=== PATIENT | male | born 1975 | race Caucasian/White ===

== ENCOUNTER 2018-08-19 18:18 | Observation (INO) | payer BC ==
[~2018-08-19] VITALS: Ht 167.6 cm; Wt 72.1 kg
[2018-08-19 18:39] VITALS: BP 113/67
--- NOTE | 2018-08-19 18:45 | NUR ---
The patient, MARINA EUCEDA, 43 y/o, M admitted by RIVERA SCHWAB MD, was given written information regarding hospital policies, unit procedures and contact persons. Valuables were checked and left in room. Patient direct admission from Dr. Schwab, states that he was at [facility] today for ultrasound and then was told that he had a DVT and needed to be admitted. Patient arrived to hospital and ambulated to ICU 4 via wheelchair with friend. Patient alert and oriented x4, able to make needs known and denies complaints. States that pain to right leg is intermittent but currently is not having any pain at this time. Labs, vitals and IV placed at this time. Dr Schwab notified of arrival to unit and orders placed, plan is to start heparin gtt per protocol. Will continue to monitor.
[2018-08-19 19:14] LABS: BASO % 0 % (0-3); EOS # 0.2 x10^3/uL (0.0-0.7); EOS % 2 % (0-3); HEMATOCRIT 41.3 % (39.0-53.0); HEMOGLOBIN 13.7 g/dL (13.0-17.5); LYMPH % 20 % (24-48); MEAN CORPUSCULAR HEMOGLOBIN 31 pg (25-35); MEAN CORPUSCULAR HGB CONC 33 g/dL (31-37); MEAN CORPUSCULAR VOLUME 93 fL (79-100); MONO # 1.3 x10^3/uL (0.0-1.1); MONO % 13 % (0-9); NEUT # 6.8 x10^3uL (1.8-7.7); NEUT % 66 % (31-73); PLATELET COUNT 219 x10^3/uL (140-400); RED BLOOD COUNT 4.44 x10^6/uL (4.30-5.70); WHITE BLOOD COUNT 10.3 x10^3/uL (4.0-11.0)
[2018-08-19 19:41] LABS: ALBUMIN/GLOBULIN RATIO 0.8 (1.0-1.7); CREATININE 1.1 mg/dL (0.7-1.3); GFR 72.7; POTASSIUM 4.1 mmol/L (3.5-5.1); TOTAL BILIRUBIN 0.7 mg/dL (0.2-1.0); TOTAL PROTEIN 6.7 g/dL (6.4-8.2)
[2018-08-19] MEDS ORDERED: HEPARIN 25,000UTS/500ML PREMIX 500 ML IV PRN (19:45)
[2018-08-19] MEDS ORDERED: HEPARIN for IV BOLUS 10,000 UNIT/10 ML VIAL. IV PRN ×2 (19:45)
[2018-08-19] MEDS ORDERED: IOHEXOL 350 MG/ML 100 ML VIAL. IV ONE (20:00)
[2018-08-19] MEDS ORDERED: HEPARIN for IV BOLUS 10,000 UNIT/10 ML VIAL. IV ONE (20:00)
[2018-08-19 20:02] VITALS: BP 111/70
--- NOTE | 2018-08-19 20:09 | NUR ---
Labs resulted, radiology notified and taking patient for CTA. Heparin gtt to be started once back from radiology.
[2018-08-19 21:01] VITALS: BP 122/79
--- NOTE | 2018-08-19 21:11 | RAD ---
CT arteriogram of the chest. HISTORY: DVT right leg, evaluate for PE CT arteriogram was done using 90 mL Omnipaque 350 contrast. Thyroid is homogeneous. There is no mediastinal adenopathy or pleural effusion. There is a prominent pulmonary embolus in the right lung in the right lower lobe pulmonary artery. There is a probable small embolus in a subsegmental anterior branch of the left upper lobe. Lungs are free of infiltrates. There is mild basilar atelectasis. Visualized portions of liver and spleen are unremarkable. Adrenal glands are normal. Sagittal and coronal MIP images were reconstructed. IMPRESSION: 1. Pulmonary embolus right lower lobe, and a small subsegmental branch in the left upper lobe... 2. No acute infiltrates. The report was called the nursing digital account supervisor at 9:08 PM PQRS Compliance Statement: One or more of the following individualized dose reduction techniques were utilized for this examination: 1. Automated exposure control 2. Adjustment of the mA and/or kV according to patient size 3. Use of iterative reconstruction technique FOR INTERNAL CODING PURPOSES Critical result: RESULT CODE: (C) Electronically signed by: Chance Wilson MD (08/19/2018 9:08 PM) [facility]
[2018-08-19 22:03] VITALS: BP 116/67
--- NOTE | 2018-08-19 22:30 | NUR ---
during hourly rounds, pt is trying to fall asleep. Pt denies any complaints at this time.
[2018-08-19 23:00] VITALS: BP 106/65
[2018-08-20] VITALS (13 sets, daily range): BP systolic 104–129; BP diastolic 60–74
--- NOTE | 2018-08-20 01:00 | NUR ---
Pt states that he has not been able to sleep even a little bit, due to not being able to lay on his stomach. This nurse explained to pt that we can make him comfortable laying on his side. Pt was reluctant to try laying on his side, stating due to the monitor leads and IV sites. This nurse attempted several different options to help make him comfortable. He interrupted me and wanted to know what time the Dr comes in this morning and then get talking. Will continue to monitor pt and continue to attempt to make pt comfortable.
--- NOTE | 2018-08-20 02:37 | NUR ---
Thais from lab here to draw ptt per heparin protocol.
--- NOTE | 2018-08-20 03:00 | NUR ---
Pt is bothered by IV in left AC, and being unable to sleep. IV dc'd without complications.
[2018-08-20 03:04] LABS: BASO # 0.1 x10^3/uL (0.0-0.2); BASO % 1 % (0-3); EOS # 0.2 x10^3/uL (0.0-0.7); EOS % 2 % (0-3); HEMATOCRIT 41.9 % (39.0-53.0); HEMOGLOBIN 13.9 g/dL (13.0-17.5); LYMPH # 2.1 x10^3/uL (1.0-4.8); LYMPH % 25 % (24-48); MEAN CORPUSCULAR HEMOGLOBIN 31 pg (25-35); MEAN CORPUSCULAR HGB CONC 33 g/dL (31-37); MEAN CORPUSCULAR VOLUME 93 fL (79-100); MONO # 1.1 x10^3/uL (0.0-1.1); MONO % 13 % (0-9); NEUT # 4.9 x10^3uL (1.8-7.7); NEUT % 59 % (31-73); PLATELET COUNT 225 x10^3/uL (140-400); RED BLOOD COUNT 4.48 x10^6/uL (4.30-5.70); WHITE BLOOD COUNT 8.3 x10^3/uL (4.0-11.0)
[2018-08-20 03:39] LABS: ALBUMIN 2.8 g/dL (3.4-5.0); ALBUMIN/GLOBULIN RATIO 0.7 (1.0-1.7); CALCIUM 8.9 mg/dL (8.5-10.1); GFR 81.2; TOTAL BILIRUBIN 0.5 mg/dL (0.2-1.0); TOTAL PROTEIN 6.7 g/dL (6.4-8.2)
[2018-08-20 07:14] LABS: BACTERIA,URINE 0 /HPF (0-FEW); BILIRUBIN,URINE NEG (NEG); CLARITY,URINE HAZY; COLOR,URINE AMBER; GLUCOSE,URINE NEG (NEG); NITRITE,URINE NEG (NEG); SQUAMOUS EPITHELIAL CELL,UR FEW /LPF; UROBILINOGEN,URINE 2 mg/dL (0.2 mg/dL); WBC,URINE RARE /HPF (0-4)
--- NOTE | 2018-08-20 09:30 | NUR ---
Rounding with Dr. Smith Rounded with Dr. Smith at approx 0905. Dr. 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 Pt not aware of any family history of DVTs or PEs. Dr. Smith stated pt would be transitioned from heparin drip and DC on an oral anticoagulant today, and that pt should wear a thigh-high antiembolic stocking for the next six months. [address]. Smith notified that pt planning a trip to [place] at the end of this month, and Dr. Smith stated pt ok to fly provided he walk the aisles during the flight and not remain stationary. WCTM. Tavo Charles RN
[2018-08-20] MEDS ORDERED: APIX5TAB3 PO (09:54)
[2018-08-20] MEDS ORDERED: APIXABAN 5 MG TABLET. PO SCH ×2 (10:00→21:00)
--- NOTE | 2018-08-20 10:04 | NUR ---
Medium thigh-high antiembolic stocking applied to pt's R leg per Dr. Smith's order. D Melvin, RN
--- NOTE | 2018-08-20 10:31 | DS ---
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 The patient's scan showed a clot in his right lower lobe and left upper lobe. Prior to his lung blood clots, he was admitted because of the severity of the swelling to his legs as well as his pulmonary emboli. He was started on IV heparin. He did well during the night. No complications. The patient's labs are basically stable, slight elevation in monocytes, otherwise coag was D-dimer of 4. The patient will be discharged home on Eliquis 10 mg b.i.d. then 5 b.i.d. JULY hose to the high thigh. The patient discussed at length PEs and DVTs. IMPRESSION: Pulmonary emboli, new onset deep venous thrombosis of the right leg. PLAN: A few days off from work. Warned about walk, sitting and standing for long periods of time. See MRAD. Decreased activity. Regular diet. RIVERA SCHWAB MD DR: ANTONY/scott JOB#: [id number] / [id number]
--- NOTE | 2018-08-20 11:25 | NUR ---
Discharge Eliquis prescriptions called into [facility].
--- NOTE | 2018-08-20 13:17 | NUR ---
Pt left with friend Nerissa in her POV at 1315 via WC. Pt had all of his belongings with him at time of departure. Pt's 20g L hand PIV removed p/t departure. Pt provided education on apixaban during d/c review. Tavo Charles RN
== END 2018-08-20 13:15 | disposition home or self-care (01) ==
LOC: INTOOBSV 18:18 → ICU 18:18
PROVIDERS: ADMIT Family Medicine; ATTEND Family Medicine
DX: I26.99 Other pulmonary embolism without acute cor pulmonale (principal); I82.401 Acute embolism and thrombosis of unspecified deep veins of right lower extremity; Z98.890 Other specified postprocedural states; M79.604 Pain in right leg; M25.561 Pain in right knee; M79.661 Pain in right lower leg; R60.0 Localized edema; Z79.01 Long term (current) use of anticoagulants
CPT/HCPCS: 36415; 71275; 80053; 81001; 85025; 85379; 85610; 85730; 87641; 96365; 96366; 99406; G0378; G0379; J1644; Q9967; 99284